=== PATIENT | female | born 1975 | race Caucasian/White ===

== ENCOUNTER 2017-04-10 10:28 | Emergency (ER) | payer MEDICAID ==
[~2017-04-10] VITALS: Ht 175.3 cm; Wt 101.6 kg
[2017-04-10 11:27] LABS: BASOPHIL % 0.6 % (0-2); PLATELET COUNT 228 x10^3mcL (130-400); RED CELL DISTRIBUTION WIDTH 13.5 % (11.5-14.5)
[2017-04-10 11:34] LABS: CALCIUM 8.4 mg/dL (8.5-10.1); CARBON DIOXIDE 27.1 mmol/L (21-32); CHLORIDE SERUM 109 mmol/L (98-107); CREATININE SERUM 0.9 mg/dL (0.6-1.0); GFR1 > 60 mL/min; GLUCOSE SERUM 91 mg/dL (74-106); POTASSIUM SERUM 4.4 mmol/L (3.5-5.1); SODIUM SERUM 140 mmol/L (136-145)
[2017-04-10 11:39] LABS: ALBUMIN 3.2 g/dL (3.4-5.0); ALKALINE PHOSPHATASE 55 U/L (46-116); ALT/SGPT 16 U/L (14-59); AMYLASE 56 U/L (25-115); AST/SGOT 13 U/L (15-37); BILIRUBIN TOTAL 0.4 mg/dL (0.20-1.00); LIPASE 198 IU/L (73-393); TOTAL PROTEIN, SERUM 7.6 g/dL (6.4-8.2)
[2017-04-10 13:26] VITALS: BP 121/87
== END 2017-04-10 13:26 | disposition home or self-care (01) ==
LOC: ED 10:28
PROVIDERS: Emergency Medicine Emergency Medical Services
DX: R10.84 Generalized abdominal pain (principal); Z90.49 Acquired absence of other specified parts of digestive tract; Z87.19 Personal history of other diseases of the digestive system
CPT/HCPCS: J7030

== ENCOUNTER 2018-04-13 15:11 | Emergency (ER) | payer OTHER ==
[~2018-04-13] VITALS: Ht 175.3 cm; Wt 105.2 kg
[2018-04-13 19:15] VITALS: BP 96/59
== END 2018-04-13 19:38 | disposition home or self-care (01) ==
LOC: ED 15:11
DX: N88.8 Other specified noninflammatory disorders of cervix uteri (principal); Z90.89 Acquired absence of other organs; Z98.51 Tubal ligation status

== ENCOUNTER 2020-09-18 13:50 | Emergency (ER) | payer OTHER ==
[~2020-09-18] VITALS: Ht 170.2 cm; Wt 89.8 kg
[2020-09-18 14:00] VITALS: Ht 170.2 cm; Wt 89.8 kg
[2020-09-18 15:40] LABS: microscopic required? YES; urine erythrocyte TRACE (NEGATIVE)
[2020-09-18 15:47] LABS: PLATELET COUNT 207 x10^3mcL (179-408)
[2020-09-18 15:48] LABS: RED CELL DISTRIBUTION WIDTH 14.6 % (12.3-17.7)
[2020-09-18 15:55] LABS: BAND NEUTROPHIL 0 % (0-10); BASOPHIL 0 % (0-2); MONOCYTE 6 % (0-7); SEGMENTED NEUTROPHILS 64 % (37-75); rbc morphology (normal/abnorm) NORMAL (NORMAL)
[2020-09-18 15:59] LABS: ALKALINE PHOSPHATASE 48 U/L (46-116); ALT/SGPT 30 U/L (14-59); AST/SGOT 13 U/L (15-37); BILIRUBIN TOTAL 0.4 mg/dL (0.20-1.00); CALCIUM 8.1 mg/dL (8.5-10.1); CARBON DIOXIDE 26.2 mmol/L (21-32); CHLORIDE SERUM 105 mmol/L (98-107); CREATININE SERUM 0.7 mg/dL (0.6-1.0); GFR1 > 60 mL/min; GLUCOSE SERUM 86 mg/dL (74-106); POTASSIUM SERUM 4.3 mmol/L (3.5-5.1); SODIUM SERUM 140 mmol/L (136-145); TOTAL PROTEIN, SERUM 6.6 g/dL (6.4-8.2)
[2020-09-18 16:07] LABS: ALBUMIN 3.1 g/dL (3.4-5.0)
[2020-09-18 17:30] VITALS: BP 102/49
== END 2020-09-18 17:30 | disposition home or self-care (01) ==
LOC: ED 13:50
PROVIDERS: Emergency Medicine
DX: N83.201 Unspecified ovarian cyst, right side (principal); N39.0 Urinary tract infection, site not specified; N28.1 Cyst of kidney, acquired; Z90.89 Acquired absence of other organs
CPT/HCPCS: J2270; J2405; J7030; Q9967